=== PATIENT | male | born 1940 | race Caucasian/White ===

== ENCOUNTER 2019-05-07 10:10 | Emergency (ER) | payer MEDICARE, MEDICAID ==
[2019-05-07 11:28] VITALS: BP 141/73
--- NOTE | 2019-05-07 12:16 | UC ---
Lower Extremity/Ankle HPI - HPI Summary HPI Summary: Patient is a 79-year-old male presenting with left lower leg redness, swelling, and bruising since Tuesday. 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 States the swelling has gone down but the redness has worsened. Notes pain with palpation. Denies difficulty walking. Denies drainage. Denies fever, chills, nausea, vomiting. Patient denies blood clots in the past. - History of Current Complaint Chief Complaint: UCLowerExtremity Stated Complaint: LT LEG INJURY Onset/Duration: Gradual Onset, Lasting Days Severity Currently: Moderate Pain Intensity: 7 Pain Scale Used: 0-10 Numeric - Allergies/Home Medications Allergies/Adverse Reactions: Allergies Allergy/AdvReac Type Severity Reaction Status Date / Time No Known Allergies Allergy Verified 05/07/19 11:28 PMH/Surg Hx/FS Hx/Imm Hx Endocrine History: Dyslipidemia Cardiovascular History: Hypertension - Surgical History Surgical History: None - Family History Known Family History: Positive: Other - asthma - Social History Alcohol Use: None Substance Use Type: None Smoking Status (MU): Never Smoked Tobacco Review of Systems All Other Systems Reviewed And Are Negative: Yes Constitutional: Positive: Negative. Negative: Fever, Chills, Fatigue Skin: Positive: Rash, Bruising Respiratory: Positive: Negative. Negative: Shortness Of Breath, Cough Cardiovascular: Positive: Negative. Negative: Palpitations, Chest Pain Gastrointestinal: Positive: Negative. Negative: Abdominal Pain, Vomiting, Nausea Musculoskeletal: Positive: Calf Tenderness, Edema. Negative: Arthralgia, Decreased ROM, Myalgia Neurological: Negative: Headache, Weakness, Paresthesia, Numbness Psychological: Positive: Negative Physical Exam Triage Information Reviewed: Yes Appearance: Well-Appearing, No Pain Distress, Well-Nourished Vital Signs: Initial Vital Signs Temp 98.6 F 05/07/19 11:24 Pulse 67 05/07/19 11:24 Resp 16 05/07/19 11:24 BP 141/73 05/07/19 11:24 Pulse Ox 99 05/07/19 11:24 Vital Signs Reviewed: Yes Eyes: Positive: Conjunctiva Clear ENT: Positive: Hearing grossly normal Neck: Positive: Supple Respiratory Exam: Normal Respiratory: Positive: Lungs clear, Normal breath sounds, No respiratory distress, Other: - no tachypnea. Negative: Crackles, Rhonchi, Stridor, Wheezing Cardiovascular Exam: Normal Cardiovascular: Positive: RRR, Pulses Normal - Normal pedal and ankle pulses bilaterally, Brisk Capillary Refill Musculoskeletal Exam: Normal Musculoskeletal: Positive: Strength Intact, ROM Intact, No Edema, Other: - negatvie arabella sign Neurological Exam: Other - Sensation grossly intact. Neurological: Positive: Alert Psychological: Positive: Age Appropriate Behavior Skin: Positive: Other - Area of erythema and warmth noted superior medial left lower leg. no fluctuance or drainage. no ecchymosis noted Lower Extremity Course/Dx - Course Course Of Treatment: Discussed cellulitis with patient. An outline of the erythema was drawn while here. Instructed to take Keflex for treatment of cellulitis. Instructed patient to go the emergency room if redness does not improve or worsens within 2 days. Instructed to go to the emergency room if he experiences worsening symptoms, including fever, chills, nausea, vomiting, or severe pain. Patient voiced understanding and agreed with the treatment plan. - Differential Dx/Diagnosis Provider Diagnosis: Cellulitis of left lower leg Discharge ED - Sign-Out/Discharge Documenting (check all that apply): Patient Departure All imaging exams completed and their final reports reviewed: No Studies - Discharge Plan Condition: Stable Disposition: HOME Prescriptions: Cephalexin CAP* [Keflex CAP*] 500 mg PO TID #15 cap Cephalexin SUSP* [Keflex SUSP 250 MG/5 ML*] 10 ml PO TID #150 ml Patient Education Materials: Cellulitis (ED) Referrals: Carl Oakley,[facility] [Primary Care Provider] - If Needed Additional Instructions: As discussed, take Keflex as prescribed for the treatment of your cellulitis. Keep the area clean and dry. Follow up with the [facility] listed below if your symptoms do not resolve within two days. Go to the emergency room if you experience worsening redness and warmth of your leg, drainage from your leg, severe pain, difficulty breathing, or nausea and vomiting. - Billing Disposition and Condition Condition: STABLE Disposition: Home
== END 2019-05-07 12:34 | disposition home or self-care (01) ==
LOC: UCCORT 10:10
DX: L03.116 Cellulitis of left lower limb (principal); I10 Essential (primary) hypertension
CPT/HCPCS: 99212; G0463